=== PATIENT | male | born 1990 | race Caucasian/White ===

== ENCOUNTER 2016-09-04 20:33 | Emergency (ER) | payer BC ==
[2016-09-04] MEDS ORDERED: DEXAMETHASONE 10 MG/ML VIAL PO STA (21:00)
[2016-09-04] MEDS ORDERED: cefTRIAXone 1 GM VIAL IM STA (21:00)
[2016-09-04] MEDS ORDERED: LIDOCAINE 1% 2 ML VIAL ONE (21:02)
[2016-09-04] MEDS ORDERED: cefTRIAXone 1 GM VIAL ONE (21:03)
[2016-09-04] MEDS ORDERED: DEXAMETHASONE 10 MG/ML VIAL ONE (21:03)
== END 2016-09-04 22:07 | disposition home or self-care (01) ==
DX: H66.92 Otitis media, unspecified, left ear (principal); K21.9 Gastro-esophageal reflux disease without esophagitis

== ENCOUNTER 2016-09-05 12:57 | Emergency (ER) | payer BC ==
[2016-09-05] MEDS ORDERED: IOPAMIDOL-300 100 ML VIAL IVP ONE (15:21)
== END 2016-09-05 16:43 | disposition home or self-care (01) ==
DX: R13.10 Dysphagia, unspecified (principal); M54.5 Low back pain; K21.9 Gastro-esophageal reflux disease without esophagitis
CPT/HCPCS: 36415; 70491; 71020; 80048; 85025; 99283; 99284; Q9967